=== PATIENT | male | born 1970 | race Two or more races ===

== ENCOUNTER → 2018-08-08 | Outpatient (CLI) | payer OTHER ==
[2015-03-16 11:00] VITALS: BP 116/72
[~2018-08-08] MED LIST: ASPI81TA50 PO; ATOR10TA60 PO; METO25TA4 PO; SAXA1TBM3 PO; TICA90TA PO
--- NOTE | 2018-08-08 11:54 | CARD ---
MR#: [id number] Date of Study: 08/08/2018 Ordering Physician: SHEILA MOODY, Referring Physician: SHEILA MOODY, Tech: America Edwards LUIS F APPROVED REPORT EXAM: Two-dimensional and M-mode echocardiogram with Doppler and color Doppler. Other Information Quality : GoodHR: 64bpm Rhythm : NSR INDICATION Cardiomyopathy 2D DIMENSIONS RVDd3.0 (2.9-3.5cm)Left Atrium(2D)3.3 (1.6-4.0cm) IVSd1.0 (0.7-1.1cm)Aortic Root(2D)3.0 (2.0-3.7cm) LVDd4.7 (3.9-5.9cm)LVOT Diameter2.1 (1.8-2.4cm) PWd0.9 (0.7-1.1cm)LVDs2.9 (2.5-4.0cm) FS (%) 38.4 %SV70.9 ml LVEF(%)68.6 (>50%) Aortic Valve AoV Peak Luca.139.5cm/sAoV VTI27.0cm AO Peak GR.7.8mmHgLVOT Peak Luca.105.3cm/s AO Mean GR.4mmHgAVA (VMAX)2.60cm2 THIERNO (VTI)2.70cm2 Mitral Valve MV E Hfswpqoy94.9cm/sMV DECEL [id number] MV A Tjrpbqny85.9cm/sE/A Ratio1.4 MV A Afqdznka92ll Pulmonary Valve PV Peak Vfagcjqe22.3cm/s Tricuspid Valve TR P. Xqcypjwv739nk/sRAP NONAMUMJ8uiKg TR Peak Gr.28bnRlMPUM45urIb Pulmonary Vein S1 Pbtpnwwi46.6cm/sD2 Tioeesmf62.8cm/s PVa [id number] LEFT VENTRICLE The left ventricle is normal size. There is normal left ventricular wall thickness. The left ventricu lar systolic function is normal. The Ejection Fraction is 60-65%. There is normal LV segmental wall m otion. The left ventricular diastolic function and filling is normal for age. RIGHT VENTRICLE The right ventricle is normal size. There is normal right ventricular wall thickness. The right ventr icular systolic function is normal. ATRIA The left atrium size is normal. The right atrium size is normal. The interatrial septum is intact wit h no evidence for an atrial septal defect or patent foramen ovale as noted on 2-D or Doppler imaging. AORTIC VALVE The aortic valve is normal in structure and function. The aortic valve is trileaflet. Doppler and Col or Flow revealed no significant aortic regurgitation. There is no significant aortic valvular stenosi s. MITRAL VALVE The mitral valve is normal in structure and function. There is no evidence of mitral valve prolapse. There is no mitral valve stenosis. Doppler and Color-flow revealed trace mitral regurgitation. TRICUSPID VALVE The tricuspid valve is normal in structure and function. Doppler and Color Flow revealed trace tricus pid regurgitation. The PA pressure was estimated at 25 mmHg. There is no tricuspid valve prolapse or vegetation. There is no tricuspid valve stenosis. PULMONIC VALVE The pulmonary valve is normal in structure and function. Doppler and Color Flow revealed trace pulmon ic valvular regurgitation. There is no pulmonic valvular stenosis. GREAT VESSELS The aortic root is normal in size. The ascending aorta is normal in size. The IVC is normal in size a nd collapses >50% with inspiration. PERICARDIAL EFFUSION There is no evidence of significant pericardial effusion. Critical Notification Critical Value: No <Conclusion> The left ventricular systolic function is normal. The Ejection Fraction is 60-65%. There is normal LV segmental wall motion. Trace mitral regurgitation. Trace tricuspid regurgitation. The PA pressure was estimated at 25 mmHg. There is no evidence of significant pericardial effusion. Signed by : Emil Matias, Electronically Approved : 08/08/2018 11:52:59
== END | disposition home or self-care (01) ==
LOC: ECHO 11:02
PROVIDERS: ATTEND Internal Medicine Cardiovascular Disease
DX: I42.9 Cardiomyopathy, unspecified (principal)
CPT/HCPCS: 93306